=== PATIENT | male | born 1950 | race Caucasian/White ===

== ENCOUNTER 2019-12-24 05:40 | Emergency (ER) | payer BC ==
[~2019-12-24 05:40] MED LIST: [UNRECOGNIZED DRUG - OTHER]; [UNRECOGNIZED DRUG - REMARK]; [UNRECOGNIZED DRUG - REMARK]
[2019-12-24] MEDS ORDERED: PRAVASTATIN10 MG PO ×2 (06:18→06:19)
[2019-12-24] MEDS ORDERED: COZAAR100 MG PO (06:18)
[2019-12-24] MEDS ORDERED: SYNTHROID25 MCG PO (06:18)
[2019-12-24] MEDS ORDERED: NORVASC2.5 M1 PO (06:20)
[2019-12-24] MEDS ORDERED: PREDNISONE50 MG PO (07:00)
[2019-12-24] MEDS ORDERED: TRAMADOL HCL50 MG PO (07:00)
[2019-12-24] MEDS ORDERED: TORADOL PO (07:00)
[2019-12-24 07:03] VITALS: BP 165/84
== END 2019-12-24 07:07 | disposition home or self-care (01) | DRG 563 ==
LOC: ED 05:40
DX: S39.012A Strain of muscle, fascia and tendon of lower back, initial encounter (principal); I10 Essential (primary) hypertension; X58.XXXA Exposure to other specified factors, initial encounter

== ENCOUNTER 2020-01-01 01:39 | Emergency (ER) | payer BC ==
[~2020-01-01 01:39] MED LIST changes: +COZAAR100 MG PO; +NORVASC2.5 M1 PO; +PRAVASTATIN10 MG PO; +PREDNISONE50 MG PO; +SYNTHROID25 MCG PO; +TORADOL PO; +TRAMADOL HCL50 MG PO
[2020-01-01 03:05] VITALS: BP 112/69
[2020-01-01] MEDS ORDERED: ORPHENADRINE100 MG PO (03:10)
== END 2020-01-01 03:22 | disposition home or self-care (01) | DRG 552 ==
LOC: ED 01:39
DX: M54.16 Radiculopathy, lumbar region (principal); I10 Essential (primary) hypertension

== ENCOUNTER 2020-09-07 06:11 | Emergency (ER) | payer BC ==
[~2020-09-07] VITALS: Ht 193 cm; Wt 91.0 kg
[~2020-09-07 06:11] MED LIST changes: +ORPHENADRINE100 MG PO
[2020-09-07] MEDS ORDERED: MICARDIS80 MG PO (06:31)
[2020-09-07] MEDS ORDERED: ASPIRIN81 MG PO (06:45)
[2020-09-07 07:08] VITALS: BP 158/92
== END 2020-09-07 07:08 | disposition home or self-care (01) | DRG 605 ==
LOC: ED 06:11
PROC: 0HQFXZZ Repair Right Hand Skin, External Approach (ICD-10-PCS; principal; 2020-09-07)
DX: S61.212A Laceration without foreign body of right middle finger without damage to nail, initial encounter (principal); C81.90 Hodgkin lymphoma, unspecified, unspecified site; I10 Essential (primary) hypertension; E78.00 Pure hypercholesterolemia, unspecified; W26.8XXA Contact with other sharp object(s), not elsewhere classified, initial encounter; Y93.K9 Activity, other involving animal care; Y92.009 Unspecified place in unspecified non-institutional (private) residence as the place of occurrence of the external cause

== ENCOUNTER 2024-10-24 15:52 | Emergency (ER) | payer BC ==
[~2024-10-24] VITALS: Ht 193 cm; Wt 90.9 kg
[2024-10-24] VITALS (22 sets, daily range): BP systolic 108–135; BP diastolic 65–95
[~2024-10-24 15:52] MED LIST changes: +ASPIRIN81 MG PO; +MICARDIS80 MG PO
[2024-10-24] MEDS ORDERED: ASPIRIN 81 MG/TAB PO ONE (16:00)
[2024-10-24] MEDS ORDERED: ONDANSETRON HCl 4 MG/2 ML SDV IV ONE (16:20)
[2024-10-24 16:31] LABS: BASO% 0.3 % (0-3); EOS% 0.1 % (0-8); HEMATOCRIT 40.6 % (39.0-50.0); HEMOGLOBIN 13.6 g/dl (14.0-18.0); IMMATURE GRANULOCYTES 0.3 % (0.0-5.0); LYMPH% 11.2 % (15-41); MEAN CELL VOLUME 96.9 fL CALC (80.0-100.0); MEAN CORPUSCULAR HGB 32.5 pG CALC (26.0-32.0); MEAN CORPUSCULAR HGB CONC 33.5 g/dL CAL (32.0-36.0); MONO% 5.6 % (2-13); NEUT# 11.4 thou/uL (1.82-7.42); NEUT% 82.5 % (42-76); RED BLOOD COUNT 4.19 mill/uL (4.70-6.10); RED CELL DISTRI WIDTH 14.1 % (11.5-15.5)
[2024-10-24] MEDS ORDERED: Heparin SODIUM (Porcine) 500 ML IV ONE (16:35)
[2024-10-24] MEDS ORDERED: Heparin SODIUM (Porcine) 5,000 UNITS/ML SDV IV ONE (16:35)
[2024-10-24] MEDS ORDERED: NITROGLYCERIN IN D5W 250 ML IV ONE (16:40)
[2024-10-24] MEDS ORDERED: SODIUM CHLORIDE 0.9% 250 ML IV PRN (16:40)
[2024-10-24 16:44] LABS: ALBUMIN 4.3 g/dL (3.2-5.0); CREATININE 1.8 mg/dL (0.7-1.3); TOTAL PROTEIN 6.9 g/dL (6.3-8.2)
[2024-10-24 17:36] LABS: ACT PARTIAL THROMBO TIME 23.2 SECONDS (20.0-32.5)
[2024-10-24 17:37] LABS: PROTHROMBIN TIME 10.4 SECONDS (9.0-12.5)
== END 2024-10-24 18:05 | disposition short-term general hospital (02) | DRG 281 ==
LOC: ED 15:52
PROVIDERS: Family Medicine
DX: I21.4 Non-ST elevation (NSTEMI) myocardial infarction (principal); C81.90 Hodgkin lymphoma, unspecified, unspecified site; I10 Essential (primary) hypertension; E78.00 Pure hypercholesterolemia, unspecified
CPT/HCPCS: J1644; J2305; J2405